=== PATIENT | male | born 1945 | race Caucasian/White ===

== ENCOUNTER 2019-04-14 13:28 | Emergency (ER) | payer OTHER ==
[~2019-04-14] VITALS: Ht 182.9 cm; Wt 99.8 kg
[2019-04-14] MEDS ORDERED: KLOR-CON M2020 MEQ PO (14:00)
[2019-04-14] MEDS ORDERED: METFORMIN HCL500 M3 PO (14:00)
[2019-04-14] MEDS ORDERED: LISINOPRIL-HCT1 EACH PO (14:00)
[2019-04-14] MEDS ORDERED: NORFLEX100 MG PO (15:27)
[2019-04-14] MEDS ORDERED: MEDROLDOSEPACK PO (15:27)
[2019-04-14 15:40] VITALS: BP 169/79
== END 2019-04-14 15:41 | disposition home or self-care (01) ==
LOC: M.ERS 13:28
DX: M54.5 Low back pain (principal); E11.9 Type 2 diabetes mellitus without complications; I10 Essential (primary) hypertension